=== PATIENT | female | born 1975 | race Caucasian/White ===

== ENCOUNTER 2021-09-15 07:35 | Day surgery (SDC) | payer OTHER ==
[~2021-09-15 07:35] MED LIST: LUTERA-28 TABL1 EACH PO; SYNTHROID137 MCG PO
[2021-09-15] MEDS ORDERED: MIRALAX17 GM PO (10:17)
[2021-09-15] MEDS ORDERED: NEURONTIN300 MG PO (10:17)
[2021-09-15] MEDS ORDERED: TYLENOL ARTHRI650 MG PO (10:17)
[2021-09-15] MEDS ORDERED: ULTRAM50 MG PO (10:17)
== END 2021-09-15 15:35 | disposition home or self-care (01) ==
LOC: CIR.AMB 07:35
PROVIDERS: ATTEND Surgery
DX: K40.90 Unilateral inguinal hernia, without obstruction or gangrene, not specified as recurrent (principal); D17.79 Benign lipomatous neoplasm of other sites